=== PATIENT | female | born 1980 | race Caucasian/White ===

== ENCOUNTER 2023-01-23 11:56 | Outpatient (CLI) | payer OTHER, SELFPAY | END 2023-01-23 11:57 | disposition home or self-care (01) | LOC: NFLDREF 01-26 07:31 | PROVIDERS: PCP Physician Assistant Medical; Referring Provider Physician Assistant Medical; Visit Provider Nurse Practitioner Family | DX: R50.9 Fever, unspecified (principal); D72.829 Elevated white blood cell count, unspecified; R10.11 Right upper quadrant pain | CPT/HCPCS: 87086 ==

== ENCOUNTER 2023-01-23 13:36 | Inpatient (IN) | payer OTHER, SELFPAY ==
[2023-01-23] VITALS (24 sets, daily range): BP systolic 102–123; BP diastolic 56–77; PULSE 70–143; RESP 16–26; TEMP 36.7–39.6; O2SAT 88–99; BMI 38.0; BMI 38.3
[2023-01-23] MEDS: ACETAMINOPHEN 500 MG TABLET 1000 MG PO (14:03)
--- NOTE | 2023-01-23 14:17 | ED_ITS ---
HPI - General Adult General Date Seen: 01/23/23 Chief complaint: Abdominal Pain Stated complaint: Abdominal pain, fever Time Seen by Provider: 01/23/23 13:54 Source: patient, RN notes reviewed and old records reviewed Mode of arrival: ambulatory Limitations: no limitations History of Present Illness HPI narrative: Patient is a 42-year-old woman sent here from urgent care for further evaluation of fever. She initially developed fever and headache on , 5 days ago. She was seen at the urgency room and diagnosed with possible sinus infection and started on Augmentin on I believe Monday. She has had several doses of that but has continued to spike fevers. She says on Monday she started to develop some pain in her right upper abdomen which has persisted and has gotten sharper. She has not had any nausea or vomiting. She denies any cough or shortness of breath. She has not specifically had chest pain. She has had several negative COVID test. No urinary symptoms. No previous abdominal surgeries, does have a remote diagnosis of lupus but it was diet controlled and she has been asymptomatic for a number of years. She does not take any immune modulators or steroids. Related Data Home Medications Medication Instructions Recorded Confirmed desvenlafaxine succinate 100 mg 100 mg PO DAILY 04/15/22 01/23/23 tablet,extended release 24 hr (Pristiq) trazodone 100 mg tablet 100 mg PO HS PRN 04/15/22 01/23/23 clonidine HCl 0.1 mg tablet 0.1 mg PO HS 05/11/22 01/23/23 Previous Rx's Medication Instructions Recorded amoxicillin 875 mg-potassium 1 tab PO BID #14 tabs 11/07/22 clavulanate 125 mg tablet Allergies Allergy/AdvReac Type Severity Reaction Status Date / Time lactose AdvReac Mild milk Verified 01/23/23 13:43 sensitivity gluten AdvReac Mild GI Uncoded 01/23/23 12:09 sensitivities Review of Systems Status of ROS: Reports: 10 or more systems reviewed and unremarkable except as noted in History and below [facility] Medical History Allergic rhinitis ?J30.9 - Allergic rhinitis, unspecified (ICD-10) Otitis media ?H66.90 - Otitis media, unspecified, unspecified ear (ICD-10) Social History Smoking Status: Never smoker Do you use any of these nicotine containing products: None Second hand tobacco smoke exposure: No How often do you have a drink containing alcohol: monthly or less How many standard drinks containing alcohol do you have on a typical day: 1 or 2 How often do you have six or more drinks on one occasion: Never AUDIT-C Alcohol total score: 1 Non-prescribed substance use: denies use service: No Exam Narrative: Exam Narrative: Vital signs as noted above. In general, an alert, nontoxic woman. She appears somewhat flushed. Head: Normocephalic, atraumatic. Eyes: Pupils are equal reactive. Extraocular movements are full. Conjunctivae are normal. ENT: Mucous membranes are moist. Throat is normal. Neck: Supple without lymphadenopathy. Heart: Mildly tachycardic, regular. Soft systolic murmur heard at the left and right sternal border. Lungs: Clear bilaterally. No increased work of breathing, crackles or wheezes. No CVA tenderness. Abdomen: Soft and nondistended. Mild upper and right upper quadrant tenderness without rebound guarding or rigidity. Extremities: Well perfused. No edema. No calf tenderness. Pulses intact. Neurologic: Patient is alert and oriented to person and place. Speech is fluent. Face is symmetric. Moves all extremities equally. Affect: Anxious Skin: Warm and dry. Well perfused. Const: Vital Signs, click to edit/add: Vital Signs - 24 hr 01/23/23 13:44 01/23/23 14:03 01/23/23 14:56 Temperature 103.2 F H 103.2 F H 101.3 F H Pulse Rate Pulse Rate [Pulse Oximeter] 104 H Respiratory Rate 16 Blood Pressure Blood Pressure [Le ft Upper Arm] Blood Pressure [Ri ght Upper Arm] 102/61 Pulse Oximetry 94 Oxygen Delivery Me thod Room Air 01/23/23 16:08 01/23/23 16:13 01/23/23 16:15 Temperature 98.7 F Pulse Rate 74 70 Pulse Rate [Pulse Oximeter] 75 Respiratory Rate 20 Blood Pressure Blood Pressure [Le ft Upper Arm] 104/56 L Blood Pressure [Ri ght Upper Arm] Pulse Oximetry 93 93 94 Oxygen Delivery Me thod Room Air 01/23/23 16:46 01/23/23 17:00 01/23/23 17:21 Temperature Pulse Rate 82 82 143 H Pulse Rate [Pulse Oximeter] Respiratory Rate Blood Pressure Blood Pressure [Le ft Upper Arm] Blood Pressure [Ri ght Upper Arm] Pulse Oximetry 94 95 88 Oxygen Delivery Me thod 01/23/23 17:23 01/23/23 17:30 01/23/23 17:45 Temperature Pulse Rate 77 90 85 Pulse Rate [Pulse Oximeter] Respiratory Rate Blood Pressure 106/60 Blood Pressure [Le ft Upper Arm] Blood Pressure [Ri ght Upper Arm] Pulse Oximetry 93 92 90 Oxygen Delivery Me thod 01/23/23 18:00 01/23/23 18:15 01/23/23 18:30 Temperature Pulse Rate 91 88 78 Pulse Rate [Pulse Oximeter] Respiratory Rate Blood Pressure Blood Pressure [Le ft Upper Arm] Blood Pressure [Ri ght Upper Arm] Pulse Oximetry 91 95 97 Oxygen Delivery Me thod 01/23/23 19:09 Temperature 100.4 F H Pulse Rate Pulse Rate [Pulse Oximeter] Respiratory Rate 18 Blood Pressure Blood Pressure [Le ft Upper Arm] Blood Pressure [Ri ght Upper Arm] Pulse Oximetry Oxygen Delivery Me thod Documenting provider has reviewed patient's vital signs: yes Course Course Hospital Course: I did look with the bedside ultrasound, I do not see obvious gallstones or significant wall thickening. She does not have a sonographic Will's. She does seem to have a mildly dilated IVC and intra portal vasculature is prominent. IV is established, I am going to get some baseline labs before deciding on imaging. Blood cultures as well as urine culture obtained. She had a CBC done in urgent care which showed a white blood cell count of 15. The urinalysis was negative. I gave a dose of Zosyn after cultures were obtained as well as a L of normal saline. Labs showed mild respiratory acidosis, she was tachypneic when I 1st saw her. Her bicarb is normal. Metabolic panel showed mildly low sodium 131 and a potassium of 3.2. Otherwise unremarkable. Her liver function showed mildly elevated AST of 48 and an ALT of 108, alk-phos was 176. Lactate was normal at 1.4. I did elect to do a right upper quadrant ultrasound given mild elevations in her liver function tests. This was ultimately read as showing no evidence of cholecystitis, no gallstones, mild hepatomegaly. Her CRP returned at 69. Lipase was normal, TSH was normal. Point of care troponin was 0.02. I elected to do a CT scan of the chest abdomen and pelvis at this point looking for a source for her fever. By my review, she had significant infiltrates in both lungs suggestive of bilateral pneumonia. I did not see any acute findings in the abdomen. Final radiology read is as follows:IMPRESSION: 1. Negative for acute pulmonary embolism. 2. Large consolidative opacities in both lungs compatible with multifocal pneumonia. Tiny bilateral pleural effusions. 3. Mediastinal and bilateral hilar lymphadenopathy is likely reactive. 4. Fluid in the proximal colon which can be seen with diarrhea. 5. Hepatomegaly. I added a dose of azithromycin for atypical coverage. She has been hemodynamically stable and without further complaints here. I have recommended admission to the hospital for IV antibiotics and have talked to the hospitalist. Vital Signs Vital signs: Initial Vital Signs Temperature 103.2 F H 01/23/23 13:44 Temperature Source Oral 01/23/23 13:44 Pulse Rate 104 H 01/23/23 13:44 Pulse Rhythm Regular 01/23/23 13:44 Pulse Strength 3+ Normal 01/23/23 13:44 Respiratory Rate 16 01/23/23 13:44 Blood Pressure 102/61 01/23/23 13:44 Blood Pressure Mean 74 01/23/23 13:44 Blood Pressure Position Sitting 01/23/23 13:44 Pulse Oximetry 94 01/23/23 13:44 Oxygen Delivery Method Room Air 01/23/23 13:44 Vital Signs Temperature 103.2 F H 01/23/23 13:44 Pulse Rate 104 H 01/23/23 13:44 Respiratory Rate 16 01/23/23 13:44 Blood Pressure 102/61 01/23/23 13:44 Pulse Oximetry 94 01/23/23 13:44 Oxygen Delivery Method Room Air 01/23/23 13:44 Temperature 100.4 F H 01/23/23 19:09 Pulse Rate 78 01/23/23 18:30 Respiratory Rate 18 01/23/23 19:09 Blood Pressure 106/60 01/23/23 17:23 Pulse Oximetry 97 01/23/23 18:30 Oxygen Delivery Method Room Air 01/23/23 16:08 Medical Decision Making Lab Data Labs: Lab Results 01/23/23 Range/Units 14:20 VBG pH 7.464 H (7.32-7.43) VBG pCO2 39 L (40-50) mmHG VBG pO2 28.8 (25-47) mmHG VBG HCO3 28 (21-28) mmol/L Sodium 131 L (135-149) mmol/L Potassium 3.2 L (3.6-5.1) mmol/L Chloride 96 (96-114) mmol/L Carbon Dioxide 30 (20-32) mmol/L BUN 7 (5-24) mg/dL Creatinine 0.8 (0.5-1.5) mg/dL Estimated Creat Clear 90.53 Estimated GFR 93 ml/min Glucose 114 (60-115) mg/dL Calcium 8.0 L (8.4-10.6) mg/dL Total Bilirubin 0.6 (0.1-1.5) mg/dL Direct Bilirubin 0.3 (0.0-0.5) mg/dL AST 48 H (12-35) U/L ALT 108 H (4-35) U/L Alkaline Phosphatase 176 H (40-150) U/L Lactate Baseline 1.4 (0.5-1.9) mmol/L C-Reactive Protein 68.9 H (0.5-1.0) mg/dL Total Protein 6.7 (6.0-8.3) g/dL Albumin 3.5 (3.3-5.0) g/dL Lipase 21 L (23-300) U/L TSH 3.190 (0.270-4.200) uIU/mL POC Troponin I 0.02 (0.01-0.04) ng/ml Discharge Plan Discharge Clinical Impression: Multifocal pneumonia Patient Disposition: Admitted As Observation
[2023-01-23 14:31] LABS: HCO3 VBG 28 mmol/L (21-28); Lactate Sepsis w/Reflex* 1.4 mmol/L (0.5-1.9); PCO2 VBG 39 mmHG (40-50); PO2 VBG 28.8 mmHG (25-47); pH VBG 7.464 (7.32-7.43)
[2023-01-23] MEDS: 0.9 % SODIUM CHLORIDE 1000 ml 1,000 ML IV (14:34)
[2023-01-23] MEDS: PIPERACILLIN/TAZOBACTAM 3.375 GM in 0.9 % SODIUM CHLORIDE Mini-bag 100 ML IVPB (14:49)
[2023-01-23 14:56] LABS: Albumin* 3.5 g/dL (3.3-5.0)
[2023-01-23 14:59] LABS: Aspartate Amino Transferase* 48 U/L (12-35); Bilirubin Direct* 0.3 mg/dL (0.0-0.5); Bilirubin Total* 0.6 mg/dL (0.1-1.5)
[2023-01-23 15:00] LABS: Alanine Aminotransferase* 108 U/L (4-35); Alkaline Phosphatase* 176 U/L (40-150); Lipase* 21 U/L (23-300)
[2023-01-23 15:01] LABS: Chloride* 96 mmol/L (96-114); Potassium* 3.2 mmol/L (3.6-5.1); Sodium* 131 mmol/L (135-149)
--- NOTE | 2023-01-23 15:03 | CRLHL7_ITS ---
For Patients: As a result of the Cures Act, medical imaging exams and procedure reports are released immediately into your electronic medical record. You may view this report before your referring provider. If you have questions, please contact your health care provider. INDICATION: Fever and abdominal pain. COMPARISON: COMPARISON DATE TECHNIQUE: Ultrasound examination of the right upper quadrant was performed. FINDINGS: The gallbladder is normal in appearance with no sign of cholelithiasis or acute cholecystitis. A sonographic Will sign is not present, with no pain over the gallbladder during ultrasound examination. The common bile duct is normal in caliber at 2 mm. The pancreatic head and body were examined, and these are normal in appearance. The abdominal aorta and visualized portions of the inferior vena cava are normal in appearance. The liver shows no sign of mass or contour abnormality, and there is no sign of ascites. There is antegrade flow in the main portal vein. The liver is mildly enlarged, measuring 21.4 centimeters in length. The right kidney is unremarkable. IMPRESSION: Mild hepatomegaly. Otherwise normal right upper quadrant ultrasound. Dictated by Arvind Choe MD @ 01/23/2023 5:45:52 PM (Electronically Signed)
[2023-01-23 15:04] LABS: Blood Urea Nitrogen* 7 mg/dL (5-24); Carbon Dioxide* 30 mmol/L (20-32); Creatinine* 0.8 mg/dL (0.5-1.5); Est. Creatinine Clearance* 90.53; Estimated Glomerular Filt Rate 93 ml/min; Glucose* 114 mg/dL (60-115); Troponin, Point-of-Care* 0.02 ng/ml (0.01-0.04)
[2023-01-23 15:17] LABS: Total Protein* 6.7 g/dL (6.0-8.3)
--- NOTE | 2023-01-23 16:13 | CRLHL7_ITS ---
For Patients: As a result of the Century Cures Act, medical imaging exams and procedure reports are released immediately into your electronic medical record. You may view this report before your referring provider. If you have questions, please contact your health care provider. INDICATION: Fever, chills, abdominal pain, mid upper back pain since Monday. TECHNIQUE: CT of the chest, abdomen, and pelvis with 95 cc Isovue 370 IV contrast. Coronal and sagittal reconstructions. COMPARISON: Abdominal ultrasound 01/23/2023. FINDINGS: Chest: Normal heart size. Normal caliber thoracic aorta and central pulmonary arteries. No acute pulmonary embolism identified. No pericardial effusion. Enlarged mediastinal and bilateral hilar lymph nodes are likely reactive. The thyroid gland is normal in appearance. Tiny bilateral pleural effusions. There are multiple large consolidative opacities in both lungs compatible with multifocal pneumonia. No pneumothorax. No pulmonary nodules identified. No central endobronchial lesion or significant bronchial wall thickening. Schmorl`s node in the superior endplate of the T11 vertebral body. The bones are otherwise unremarkable. Abdomen/pelvis: The liver is enlarged measuring 22.5 cm in length. No focal liver lesions. The gallbladder, spleen, pancreas, and adrenal glands are negative. No biliary dilation. Hepatic and portal veins appear patent. Symmetric enhancement of the kidneys. No hydronephrosis or ureteral dilation. No obstructing urinary calculi identified. The bladder is normal in appearance. Multiple exophytic uterine fibroids. IUD in the uterus. No definite adnexal mass. Mild wall thickening of the gastric antrum is likely inflammatory. No small bowel dilation. Fluid-filled ascending and transverse colon which can be seen with diarrhea. Formed stool in the rectosigmoid colon. Redundant sigmoid colon. Negative appendix. Small amount of free fluid in the pelvis is likely physiologic. No intraperitoneal free air. No lymphadenopathy. Small fat containing umbilical hernia. The bones are unremarkable. IMPRESSION: 1. Negative for acute pulmonary embolism. 2. Large consolidative opacities in both lungs compatible with multifocal pneumonia. Tiny bilateral pleural effusions. 3. Mediastinal and bilateral hilar lymphadenopathy is likely reactive. 4. Fluid in the proximal colon which can be seen with diarrhea. 5. Hepatomegaly. Please note that all CT scans at this facility use dose modulation, iterative reconstruction, and/or weight-based dosing when appropriate to reduce radiation dose to as low as reasonably achievable. Dictated by Jayashree Mccoy MD @ 01/23/2023 6:32:19 PM (Electronically Signed)
--- NOTE | 2023-01-23 16:14 | ED.NURSE ---
was noted to have an irregular pulse. did place director of cardiac cath lab which proved to have sinus rhythm with frequent pacs.
[2023-01-23 18:00] LABS: C Reactive Protein* 68.9 mg/dL (0.5-1.0)
[2023-01-23] MEDS: AZITHROMYCIN 250 MG TABLET 500 MG PO (18:47)
--- NOTE | 2023-01-23 19:20 | ED.NURSE ---
pt report given to oncoming medsur nurse.
[2023-01-23 21:45] LABS: Lactate Dehydrogenase* 392 U/L (120-246)
[2023-01-23] MEDS: ACETAMINOPHEN 325 MG TABLET 650 MG PO (21:47)
[2023-01-23] MEDS: cefTRIAXone 1 GM in 0.9 % SODIUM CHLORIDE Mini-bag 100 ML IVPB (21:49)
[2023-01-23] MEDS: MELATONIN 3 MG TABLET PO (22:11)
[2023-01-23] MEDS: TRAZODONE HCL 50 MG TABLET 100 MG PO (22:11)
[2023-01-24] VITALS (8 sets, daily range): BP systolic 97–107; BP diastolic 62–67; PULSE 74–95; RESP 18–20; TEMP 36.6–38.2; O2SAT 92–96
--- NOTE | 2023-01-24 00:35 | PM.IMHP1 ---
Hospitalist- H&P: HPI History of Present Illness Time Seen by Provider: 19:30 Date Seen: 01/23/23 Chief complaint: Abdominal pain, fever Narrative: Holly Abdi is a 42 year old woman was in her usual state of health until about 5 days ago. Since then she has had intermittent fevers and headache. Denies cough or dyspnea. Assessed in the urgent care setting in [place], [place], and was thought to have an acute sinusitis for which she was started on Augmentin 875 b.i.d.. Has taken 2 and half days of this medicine, total of 5 doses. Continues to spike fevers. Abdominal pain not improving. Has not had chest pain. Denies dysuria, urgency, frequency, hematuria. No diarrhea. Review of Systems Status of ROS: Reports: 10 or more systems reviewed and unremarkable except as noted in History and below Narrative: Interact with friends and family. As best as she can tell she has not been exposed to others who have been ill. Has no birds in her home. Did visit her father who has pigeons in his barn. This was about 2 weeks ago. 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 . No children. 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 Designates her father, Dmitriy Boyce, cell phone [phone], and her mother, Lluvia Boyce, cell phone [phone], as her de luna of consumer attorney for health should that be required. Requests full resuscitation in the event of cardiopulmonary demise. Currently does not have a primary care physician. Smoking Status: Never smoker Do you use any of these nicotine containing products: None Second hand tobacco smoke exposure: No How often do you have a drink containing alcohol: monthly or less How many standard drinks containing alcohol do you have on a typical day: 1 or 2 How often do you have six or more drinks on one occasion: Never AUDIT-C Alcohol total score: 1 Non-prescribed substance use: denies use service: No Meds Home Medications and Allergies Home Medications Medication Instructions Recorded Confirmed Type desvenlafaxine succinate 100 mg 100 mg PO DAILY 04/15/22 01/23/23 History tablet,extended release 24 hr (Pristiq) trazodone 100 mg tablet 100 mg PO HS PRN 04/15/22 01/23/23 History clonidine HCl 0.1 mg tablet 0.1 mg PO HS 05/11/22 01/23/23 History Home Medication Comments: Started Augmentin 875/125 1 tab twice daily 2 and half days ago. Has taken a total of 5 doses without improvement. Allergies Allergy/AdvReac Type Severity Reaction Status Date / Time lactose AdvReac Mild milk Verified 01/23/23 13:43 sensitivity gluten AdvReac Mild GI Uncoded 01/23/23 12:09 sensitivities Exam Narrative: Exam Narrative: I examined the patient in the emergency department as she is in a semi recumbent position. Appears weary. No acute distress. Intermittent dry cough. Vision and hearing are grossly normal. Alert, oriented to self, place, time, situation. Articulate, cooperative, friendly. Mood and affect are congruent. Tympanic membranes appear normal. Midline nasal septum. Dentition in fair repair. Mallampati class 2 airway. No icterus or conjunctival injection. Pupils equally round reactive to light and accommodation. Extraocular muscles are intact. Neck is supple. Midline trachea. No JVD or hepatojugular reflux. No carotid bruits. No head and neck lymphadenopathy. Lungs with bibasilar rales, left greater than right. No wheezing or rhonchi. Chest wall excursions are full. Heart tones with regular rhythm, normal S1-S2, without murmur, gallop, or rub. Abdomen with active bowel sounds, soft, nontender. No organomegaly masses. Extremities without edema. Capillary refill less than 3 seconds. No focal motor neurologic deficits. Independent transfer, station, gait. No tremor, asterixis, or ataxia. Skin is dry and intact. No jaundice, petechiae, cyanosis, or rashes. Const: Vital Signs, click to edit/add: Vital Signs - 24 hr 01/23/23 13:44 01/23/23 14:03 01/23/23 14:56 Temperature 103.2 F H 103.2 F H 101.3 F H Pulse Rate Pulse Rate [Pulse Oximeter] 104 H Pulse Rate [Right Radial] Respiratory Rate 16 Blood Pressure Blood Pressure [Le ft Upper Arm] Blood Pressure [Ri ght Arm] Blood Pressure [Ri ght Upper Arm] 102/61 Pulse Oximetry 94 Oxygen Delivery Mn thod Room Air 01/23/23 16:08 01/23/23 16:13 01/23/23 16:15 Temperature 98.7 F Pulse Rate 74 70 Pulse Rate [Pulse Oximeter] 75 Pulse Rate [Right Radial] Respiratory Rate 20 Blood Pressure Blood Pressure [Le ft Upper Arm] 104/56 L Blood Pressure [Ri ght Arm] Blood Pressure [Ri ght Upper Arm] Pulse Oximetry 93 93 94 Oxygen Delivery Mn thod Room Air 01/23/23 16:46 01/23/23 17:00 01/23/23 17:21 Temperature Pulse Rate 82 82 143 H Pulse Rate [Pulse Oximeter] Pulse Rate [Right Radial] Respiratory Rate Blood Pressure Blood Pressure [Le ft Upper Arm] Blood Pressure [Ri ght Arm] Blood Pressure [Ri ght Upper Arm] Pulse Oximetry 94 95 88 Oxygen Delivery Mn thod 01/23/23 17:23 01/23/23 17:30 01/23/23 17:45 Temperature Pulse Rate 77 90 85 Pulse Rate [Pulse Oximeter] Pulse Rate [Right Radial] Respiratory Rate Blood Pressure 106/60 Blood Pressure [Le ft Upper Arm] Blood Pressure [Ri ght Arm] Blood Pressure [Ri ght Upper Arm] Pulse Oximetry 93 92 90 Oxygen Delivery Mn thod 01/23/23 18:00 01/23/23 18:15 01/23/23 18:30 Temperature Pulse Rate 91 88 78 Pulse Rate [Pulse Oximeter] Pulse Rate [Right Radial] Respiratory Rate Blood Pressure Blood Pressure [Le ft Upper Arm] Blood Pressure [Ri ght Arm] Blood Pressure [Ri ght Upper Arm] Pulse Oximetry 91 95 97 Oxygen Delivery Mn thod 01/23/23 19:08 01/23/23 19:09 01/23/23 19:15 Temperature 100.4 F H Pulse Rate 92 Pulse Rate [Pulse Oximeter] Pulse Rate [Right Radial] Respiratory Rate 18 Blood Pressure Blood Pressure [Le ft Upper Arm] Blood Pressure [Ri ght Arm] Blood Pressure [Ri ght Upper Arm] Pulse Oximetry 93 96 Oxygen Delivery Me thod 01/23/23 19:30 01/23/23 19:45 01/23/23 20:44 Temperature 101.1 F H Pulse Rate 93 98 Pulse Rate [Pulse Oximeter] Pulse Rate [Right Radial] 96 Respiratory Rate 20 Blood Pressure Blood Pressure [Le ft Upper Arm] Blood Pressure [Ri ght Arm] 123/77 Blood Pressure [Ri ght Upper Arm] Pulse Oximetry 99 96 Oxygen Delivery Me thod Room Air 01/23/23 20:44 01/23/23 21:47 Temperature 102.9 F H Pulse Rate Pulse Rate [Pulse Oximeter] Pulse Rate [Right Radial] Respiratory Rate 20 Blood Pressure Blood Pressure [Le ft Upper Arm] Blood Pressure [Ri ght Arm] Blood Pressure [Ri ght Upper Arm] Pulse Oximetry [facility] Hospitalist - H&P: Result Labs Labs: [facility] 01/23/23 14:20 Sodium 131 L Potassium 3.2 L Chloride 96 Carbon Dioxide 30 BUN 7 Creatinine 0.8 Glucose 114 Calcium 8.0 L Liver Function 01/23/23 Range/Units 14:20 Total Bilirubin 0.6 (0.1-1.5) mg/dL Direct Bilirubin 0.3 (0.0-0.5) mg/dL AST 48 H (12-35) U/L ALT 108 H (4-35) U/L Alkaline Phosphatase 176 H (40-150) U/L Albumin 3.5 (3.3-5.0) g/dL Imaging CT scan - chest, abdomen, pelvis: Attestation: I have reviewed the pertinent imaging results. Radiologist's impression: IMPRESSION: 1. Negative for acute pulmonary embolism. 2. Large consolidative opacities in both lungs compatible with multifocal pneumonia. Tiny bilateral pleural effusions. 3. Mediastinal and bilateral hilar lymphadenopathy is likely reactive. 4. Fluid in the proximal colon which can be seen with diarrhea. 5. Hepatomegaly. Assessment and Plan Assessment and plan (1) Atypical pneumonia: Problem comment: Relative unresponsiveness to Augmentin oral antibiotic and abnormal laboratories suggest high likelihood for mycoplasma pneumoniae. Differential diagnosis includes Legionella, Chlamydia pneumoniae. Doubt psittacosis. Status: Acute (2) Multifocal pneumonia: Problem comment: Unresponsive to outpatient oral Augmentin x2 and half days. 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 Still sees web content manager annually. Advised to avoid exposure to all nonsteroidal anti-inflammatory medications. Status: Acute (4) Hyponatremia: Problem comment: Likely related to water intake in efforts to maintain her hydration. Status: Acute (5) Hypokalemia: Status: Acute Plan 1. Reviewed with patient. 2. Answered her questions. 3. Continues to have spiking fevers despite oral Augmentin. It appears as though she has an atypical pneumonia. Will broaden the spectrum of antibiotic coverage, start her on ceftriaxone and azithromycin. 4. Continue to monitor oxygen needs closely. Will ask respiratory therapy to assist. Bedside incentive spirometry. 5. Normal saline IV. 6. Oral potassium supplementation. 7. Monitor labs, including CBC, liver function studies, renal function, electrolytes. 8. Continue with her supportive medications. 9. Patient agreeable to above stated plans and recommendations.
--- NOTE | 2023-01-24 01:59 | PC.NURSE ---
Pt arrived from ED. Pleasant and cooperative. Fever increasing since last taken in ED. Tylenol given for a temp of 102.9. LS with exp. wheezes noted to Right lung posteriorly. Pt denies any chest pain, SOB. Minimal coughing noted. Rocephine given.
[2023-01-24] MEDS: ACETAMINOPHEN 325 MG TABLET 650 MG PO ×3 (06:44→20:02)
[2023-01-24] MEDS: POTASSIUM BICARB 25 MEQ EFFERVESCENT TAB 50 MEQ PO (06:48)
[2023-01-24 06:54] LABS: HCO3 VBG 27 mmol/L (21-28); PCO2 VBG 41 mmHG (40-50); PO2 VBG 30.3 mmHG (25-47); pH VBG 7.438 (7.32-7.43)
[2023-01-24 07:03] LABS: Basophils Percent Auto 0.3 % (0.0-3.0); Hematocrit 33.8 % (33.0-51.0); Hemoglobin* 11.4 gm/dL (12.0-16.0); Immature Granulocytes Pct Auto 0.6 %; Immature Reticulocyte Fraction 6.5 % (3.0-15.9); Lymphocytes Percent Auto 11.3 % (20-44); Mean Corpuscular HGB Conc 34 gm/dL (32-36); Mean Corpuscular Hemoglobin 31 pg (26-34); Mean Corpuscular Volume 90 fL (80-100); Monocytes Percent Auto 4.8 % (0.0-11.0); Platelet Count* 287 K/uL (140-440); RDW Coefficient of Variation % 13.8 % (11.5-15.5); Red Blood Count 3.74 m/uL (4.00-5.20); Reticulocyte Hemoglobin Equivi 19.8 pg (29.0-35.0); Reticulocyte Percent 0.4 % (0.5-2.0); Reticulocytes Absolute 0.01 # (0.03-0.08); White Blood Count* 12.31 K/uL (4.50-11.00)
[2023-01-24 07:25] LABS: Slide Review Reflex No
[2023-01-24 07:27] LABS: Albumin* 2.9 g/dL (3.3-5.0); Chloride* 98 mmol/L (96-114); Sodium* 132 mmol/L (135-149)
[2023-01-24 07:28] LABS: Potassium* 3.3 mmol/L (3.6-5.1)
[2023-01-24 07:29] LABS: Creatinine* 0.9 mg/dL (0.5-1.5); Est. Creatinine Clearance* 80.47; Estimated Glomerular Filt Rate 81 ml/min
[2023-01-24 07:30] LABS: Alanine Aminotransferase* 78 U/L (4-35); Alkaline Phosphatase* 149 U/L (40-150); Aspartate Amino Transferase* 39 U/L (12-35); Bilirubin Total* 0.4 mg/dL (0.1-1.5); Blood Urea Nitrogen* 12 mg/dL (5-24); Carbon Dioxide* 28 mmol/L (20-32); Glucose* 130 mg/dL (60-115); Total Protein* 5.8 g/dL (6.0-8.3)
[2023-01-24 07:31] LABS: Calcium* 7.4 mg/dL (8.4-10.6); Magnesium* 1.8 mg/dL (1.5-2.6); Phosphorus* 2.4 mg/dL (2.5-4.5)
--- NOTE | 2023-01-24 07:34 | PC.NURSE ---
END OF SHIFT NOTE: PT PLEASANT AND COOPERATIVE WITH CARES. PT DENIES CP, SOB, N/V. AMBULATES INDEPENDENTLY WITHIN ROOM. VSS ON RA; TEMP 99.0-100.4F. CALL LIGHT WITHIN PT?S REACH.?PT DIAPHORETIC AT TIMES. CHANGED GOWN AND ICE PACK FOR COMFORT. UNEVENTFUL NIGHT.
[2023-01-24 07:42] LABS: Procalcitonin* 1.61 ng/mL (<0.50)
[2023-01-24 08:03] LABS: C Reactive Protein* 32.5 mg/dL (0.5-1.0)
--- NOTE | 2023-01-24 09:12 | NUTR.NU ---
RDN with MD consult for lactose and gluten free diet. Patient's appetite is good and was eating breakfast during visit this morning. Patient has been following a lactose and gluten free diet for ~6 years due to her Lupus diagnosis. Patient had no questions or concerns regarding her diet and has been ordering foods she can have off the menu without difficulty. RDN's contact information was provided and patient was encouraged to contact RDN with questions. RDN will continue to follow PRN.
[2023-01-24] MEDS: AZITHROMYCIN 250 MG TABLET PO (09:16)
[2023-01-24] MEDS: POTASSIUM BICARB 25 MEQ EFFERVESCENT TAB PO ×3 (09:16→13:00)
[2023-01-24] MEDS: DESVENLAFAXINE SUCCINATE ER 50 MG TAB 100 MG PO (09:24)
[2023-01-24] MEDS: SODIUM CHLORIDE 0.9 % (FLUSH) 10 ML SYRINGE 5 ML IVF ×3 (09:25→21:26)
--- NOTE | 2023-01-24 09:47 | PM.IMPN1 ---
Progress Note: A&P Assessment and plan (1) Atypical pneumonia: Problem details: - no significant improvement on Augmentin as an outpatient oral antibiotic, likely mycoplasma pneumoniae - ddx includes Legionella, Chlamydia pneumoniae, doubt psittacosis - continue Ceftriaxone and Azithromycin (01/23) Status: Acute (2) Multifocal pneumonia: Problem details: - on ED imaging, primary symptom is fever - TTE 01/24 ordered Status: Acute (3) Protein-losing nephropathy: Problem details: - history of lupus nephropathy, resolved 12 years ago, off of immunosuppressant therapy since 2009 - Dr. Hernandez is Elevator Adjuster [phone] Status: Acute (4) Hyponatremia: Problem details: - mild, likely related to increased free water intake in efforts to maintain her hydration Status: Acute (5) Hypokalemia: Problem details: - mild, replace and follow Status: Acute (6) Murmur, cardiac: Problem details: - L midaxillary line - given this finding + pneumonia, will obtain TTE 01/24/23 Status: Acute Plan - continue antibiotics - SCDs for ppx - reviewed plan of care with patient's Elevator Adjuster (Dr. Hernandez at [phone]) Subjective Date Seen: 01/24/23 Interval history: Holly feels better today. Tolerating IV antibiotics. Specifically denies joint pain, skin changes, dyspnea, or chest pain. Exam Narrative: Exam Narrative: GEN: Alert and oriented, nontoxic in appearance HEENT: EOMIs bilaterally, no scleral icterus. No adenopathy in cervical or supraclavicular regions CV: Heart rate regular, soft murmur with mid systolic click noted left mid axillary line R: Bibasilar decrease in air movement with mild rhonchi, no rales, no wheezing Ext: wwp, no concerning edema, no joint effusions Skin: No concerning skin lesions or rashes on exposed skin Neuro: No focal deficits Psych: Appropriate Const: Vital Signs, click to edit/add: Vital Signs - 24 hr 01/23/23 13:44 01/23/23 14:03 01/23/23 14:56 Temperature 103.2 F H 103.2 F H 101.3 F H Pulse Rate Pulse Rate [Pulse Oximeter] 104 H Pulse Rate [Right Radial] Respiratory Rate 16 Blood Pressure Blood Pressure [Le ft Upper Arm] Blood Pressure [Ri ght Arm] Blood Pressure [Ri ght Upper Arm] 102/61 Pulse Oximetry 94 Oxygen Delivery Me thod Room Air 01/23/23 16:08 01/23/23 16:13 01/23/23 16:15 Temperature 98.7 F Pulse Rate 74 70 Pulse Rate [Pulse Oximeter] 75 Pulse Rate [Right Radial] Respiratory Rate 20 Blood Pressure Blood Pressure [Le ft Upper Arm] 104/56 L Blood Pressure [Ri ght Arm] Blood Pressure [Ri ght Upper Arm] Pulse Oximetry 93 93 94 Oxygen Delivery Me od Room Air 01/23/23 16:46 01/23/23 17:00 01/23/23 17:21 Temperature Pulse Rate 82 82 143 H Pulse Rate [Pulse Oximeter] Pulse Rate [Right Radial] Respiratory Rate Blood Pressure Blood Pressure [Le ft Upper Arm] Blood Pressure [Ri ght Arm] Blood Pressure [Ri ght Upper Arm] Pulse Oximetry 94 95 88 Oxygen Delivery Me od 01/23/23 17:23 01/23/23 17:30 01/23/23 17:45 Temperature Pulse Rate 77 90 85 Pulse Rate [Pulse Oximeter] Pulse Rate [Right Radial] Respiratory Rate Blood Pressure 106/60 Blood Pressure [Le ft Upper Arm] Blood Pressure [Ri ght Arm] Blood Pressure [Ri ght Upper Arm] Pulse Oximetry 93 92 90 Oxygen Delivery Me od 01/23/23 18:00 01/23/23 18:15 01/23/23 18:30 Temperature Pulse Rate 91 88 78 Pulse Rate [Pulse Oximeter] Pulse Rate [Right Radial] Respiratory Rate Blood Pressure Blood Pressure [Le ft Upper Arm] Blood Pressure [Ri ght Arm] Blood Pressure [Ri ght Upper Arm] Pulse Oximetry 91 95 97 Oxygen Delivery Me od 01/23/23 19:08 01/23/23 19:09 01/23/23 19:15 Temperature 100.4 F H Pulse Rate 92 Pulse Rate [Pulse Oximeter] Pulse Rate [Right Radial] Respiratory Rate 18 Blood Pressure Blood Pressure [Le ft Upper Arm] Blood Pressure [Ri ght Arm] Blood Pressure [Ri ght Upper Arm] Pulse Oximetry 93 96 Oxygen Delivery Me thod 01/23/23 19:30 01/23/23 19:45 01/23/23 20:44 Temperature 101.1 F H Pulse Rate 93 98 Pulse Rate [Pulse Oximeter] Pulse Rate [Right Radial] 96 Respiratory Rate 20 Blood Pressure Blood Pressure [Le ft Upper Arm] Blood Pressure [Ri ght Arm] 123/77 Blood Pressure [Ri ght Upper Arm] Pulse Oximetry 99 [facility] 01/23/23 20:44 01/23/23 21:47 01/23/23 23:00 Temperature 102.9 F H 98.1 F Pulse Rate Pulse Rate [Pulse Oximeter] Pulse Rate [Right Radial] Respiratory Rate 20 Blood Pressure Blood Pressure [Le ft Upper Arm] Blood Pressure [Ri ght Arm] Blood Pressure [Ri ght Upper Arm] Pulse Oximetry [facility] 01/23/23 23:55 01/23/23 23:55 01/23/23 23:55 Temperature 99.0 F Pulse Rate Pulse Rate [Pulse Oximeter] 81 81 Pulse Rate [Right Radial] Respiratory Rate 16 26 H 26 H Blood Pressure Blood Pressure [Le ft Upper Arm] Blood Pressure [Ri ght Arm] 105/59 L Blood Pressure [Ri ght Upper Arm] Pulse Oximetry 96 96 [facility] Room Air 01/24/23 06:44 Temperature 100.4 F H Pulse Rate Pulse Rate [Pulse Oximeter] Pulse Rate [Right Radial] Respiratory Rate Blood Pressure Blood Pressure [Le ft Upper Arm] Blood Pressure [Ri ght Arm] Blood Pressure [Ri ght Upper Arm] Pulse Oximetry [facility] Labs: Laboratory Results - last 24 hr 01/23/23 01/23/23 01/24/23 14:20 21:31 06:27 WBC 12.31 H RBC 3.74 L Hgb 11.4 L Hct 33.8 MCV 90 MCH 31 MCHC 34 RDW Coeff of Sky 13.8 Plt Count 287 Neut % (Auto) 83.0 H Lymph % (Auto) 11.3 L [place] % (Auto) 4.8 Eos % (Auto) 0.0 Baso % (Auto) 0.3 Neut # (Auto) 10.20 H Lymph # (Auto) 1.40 [place] # (Auto) 0.60 Eos # (Auto) 0.00 Baso # (Auto) 0.00 Abs Immat Gran (auto) 0.10 Imm/Tot Granulo (auto) 0.6 Absolute Retic 0.01 L Percent Retic 0.4 L Immature Retic Fraction 6.5 Retic Hgb Equivalent 19.8 L VBG pH 7.464 H 7.438 H VBG pCO2 39 L 41 VBG pO2 28.8 30.3 VBG HCO3 28 27 Sodium 131 L 132 L Potassium 3.2 L 3.3 L Chloride 96 98 Carbon Dioxide 30 28 BUN 7 12 Creatinine 0.8 0.9 Estimated Creat Clear 90.53 80.47 Estimated GFR 93 81 Glucose 114 130 H Lactate 1.0 Calcium 8.0 L 7.4 L Phosphorus 2.4 L Magnesium 1.8 Total Bilirubin 0.6 0.4 Direct Bilirubin 0.3 AST 48 H 39 H ALT 108 H 78 H Alkaline Phosphatase 176 H 149 Lactate Baseline 1.4 Lactate Dehydrogenase 392 H C-Reactive Protein 68.9 H 32.5 H Total Protein 6.7 5.8 L Albumin 3.5 2.9 L Lipase 21 L Procalcitonin 1.61 H TSH 3.190 Lab Acknowledgement Test Added POC Troponin I 0.02
[2023-01-24 10:24] LABS: PCR FLU A Negative PCR FLU A (Negative); PCR FLU B Negative PCR FLU B (Negative); PCR RSV Negative PCR RSV (Negative)
[2023-01-24 10:47] LABS: SARS PCR* Negative SARS-CoV-2 (Negative)
--- NOTE | 2023-01-24 18:50 | PC.NURSE ---
Patient is independent in the room. VSS ON RA. Droplet precautions for unknown pneumonia cause. Great PO intake of 800 since 1500. No pain or any fever reported.
[2023-01-24] MEDS: cefTRIAXone 1 GM in 0.9 % SODIUM CHLORIDE Mini-bag 100 ML IVPB (21:26)
[2023-01-25] VITALS (10 sets, daily range): BP systolic 102–116; BP diastolic 62–73; PULSE 71–86; RESP 16–18; TEMP 36.9–37.8; O2SAT 90–94
[2023-01-25] MEDS: MELATONIN 3 MG TABLET PO ×2 (00:13→22:39)
[2023-01-25] MEDS: TRAZODONE HCL 50 MG TABLET 100 MG PO ×2 (00:13→22:39)
--- NOTE | 2023-01-25 06:09 | PC.NURSE ---
End of Shift: Pt pleasant and cooperative throughout shift, reports pain 6/[address] but generalized discomfort due to not feeling well. Febrile with temp highest at 100.7. Improved with tylenol to 98.8. Pt reports chills. Temp checked throughout shift. Pt requested taking 50mg instead of the full 100mg PRN tramadol at HS. Voiding well, independent. No BM.
[2023-01-25] MEDS: ACETAMINOPHEN 325 MG TABLET 650 MG PO (06:28)
[2023-01-25 07:03] LABS: Basophils Absolute Auto 0.04 K/uL (0.00-0.30); Basophils Percent Auto 0.4 % (0.0-3.0); Eosinophils Absolute Auto 0.03 K/uL (0.00-0.50); Eosinophils Percent Auto 0.3 % (0.0-7.0); Hematocrit 35.9 % (33.0-51.0); Hemoglobin* 11.9 gm/dL (12.0-16.0); Immature Granulocytes Abs Auto 0.08 K/uL (0.00-0.30); Immature Granulocytes Pct Auto 0.9 %; Lymphocytes Percent Auto 16.7 % (20-44); Mean Corpuscular HGB Conc 33 gm/dL (32-36); Mean Corpuscular Hemoglobin 30 pg (26-34); Mean Corpuscular Volume 90 fL (80-100); Monocytes Percent Auto 7.4 % (0.0-11.0); Neutrophils Percent Auto 74.3 % (42.0-72.0); Platelet Count* 296 K/uL (140-440); RDW Coefficient of Variation % 14.1 % (11.5-15.5); Red Blood Count 3.97 m/uL (4.00-5.20); White Blood Count* 9.22 K/uL (4.50-11.00)
[2023-01-25 07:15] LABS: Ionized Calcium* 1.04 mmol/L (1.11-1.30)
[2023-01-25 07:20] LABS: Slide Review Reflex No
[2023-01-25 07:32] LABS: Albumin* 3.3 g/dL (3.3-5.0)
[2023-01-25 07:33] LABS: Chloride* 97 mmol/L (96-114); Sodium* 135 mmol/L (135-149)
[2023-01-25 07:35] LABS: Bilirubin Total* 0.6 mg/dL (0.1-1.5); Carbon Dioxide* 32 mmol/L (20-32); Creatinine* 0.7 mg/dL (0.5-1.5); Est. Creatinine Clearance* 103.46; Estimated Glomerular Filt Rate 109 ml/min
[2023-01-25 07:36] LABS: Alanine Aminotransferase* 110 U/L (4-35); Alkaline Phosphatase* 255 U/L (40-150); Aspartate Amino Transferase* 99 U/L (12-35); Blood Urea Nitrogen* 9 mg/dL (5-24); Calcium* 7.9 mg/dL (8.4-10.6); Gamma Glutamyl Transpeptidase* 186 U/L (8-55); Glucose* 113 mg/dL (60-115); Lactate Dehydrogenase* 323 U/L (120-246); Phosphorus* 2.6 mg/dL (2.5-4.5); Total Protein* 6.4 g/dL (6.0-8.3)
[2023-01-25 07:37] LABS: Magnesium* 2.2 mg/dL (1.5-2.6)
[2023-01-25 07:51] LABS: Procalcitonin* 0.93 ng/mL (<0.50)
[2023-01-25] MEDS: DESVENLAFAXINE SUCCINATE ER 50 MG TAB 100 MG PO (08:35)
[2023-01-25] MEDS: AZITHROMYCIN 250 MG TABLET PO (08:35)
--- NOTE | 2023-01-25 09:08 | PM.IMPN1 ---
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 Hernandez on 01/24, no evidence of SLE flare at this time Status: Acute (4) Hyponatremia: Problem details: - mild, likely related to increased free water intake in efforts to maintain her hydration, resolved 01/24 Status: Acute (5) Hypokalemia: Problem details: - mild, replace and follow Status: Acute (6) Murmur, cardiac: Problem details: - TTE 01/24, results below: - discussed outpatient f/u for KENNETH workup Final Impressions: 1. Normal LV size, normal wall thickness, normal global systolic function with an estimated EF of 60 - 65%. 2. Right ventricular cavity size is normal, global systolic RV function is normal. 3. No significant functional valve disease detected. 4. Borderline increased estimated pulmonary systolic pressures by tricuspid regurgitation velocity and right atrial pressure (~32 mmHg). 5. The inferior vena cava is dilated, respiratory size variation greater than 50%. Status: Acute (7) Elevated LFTs: Problem details: - asymptomatic, mildly enlarged liver on imaging - possibly related to R heart disease - outpatient f/u for this Status: Acute Plan - per above - SCDs for ppx - likely home tomorrow, would like to establish care with Dr. Delgado upon discharge Subjective Date Seen: 01/25/23 Interval history: Holly continues to have intermittent fevers (Tmax 100.7 last night), fever curve overall improving. No concerns for hospitalist this morning. Tolerating po intake without any abdominal pain or nausea. Exam Narrative: Exam Narrative: GEN: Alert and oriented, sitting comfortably in bedside chair HEENT: EOMIs bilaterally, no scleral icterus CV: RRR, soft systolic murmur without concerning features R: No wheezing, decreased bibasilar breath sounds, R>L Ext: wwp, trace edema bilateral ankles Skin: No concerning skin lesions or rashes on exposed skin Neuro: No focal deficits, no resting tremor Psych: Appropriate Const: Vital Signs, click to edit/add: Vital Signs - 24 hr 01/24/23 11:00 01/24/23 16:00 01/24/23 16:00 Temperature 97.8 F 98.0 F Pulse Rate [Pulse Oximeter] 95 81 Respiratory Rate 18 18 18 Blood Pressure [Ri ght Arm] 100/67 107/62 Pulse Oximetry 95 93 93 Oxygen Delivery Me thod Room Air Room Air Room Air 01/24/23 19:00 01/24/23 20:02 01/24/23 21:18 Temperature 100.7 F H 100.1 F H 100.1 F H Pulse Rate [Pulse Oximeter] 92 Respiratory Rate 18 Blood Pressure [Ri ght Arm] 107/62 Pulse Oximetry 94 Oxygen Delivery Nj thod Room Air 01/24/23 23:00 01/24/23 23:00 01/24/23 23:00 Temperature 99.1 F Pulse Rate [Pulse Oximeter] Respiratory Rate 18 18 18 Blood Pressure [Ri ght Arm] Pulse Oximetry Oxygen Delivery Nj thod Room Air 01/25/23 03:00 01/25/23 06:28 01/25/23 07:30 Temperature 98.9 F 100.1 F H Pulse Rate [Pulse Oximeter] 86 Respiratory Rate 18 Blood Pressure [Ri ght Arm] 102/67 Pulse Oximetry 94 90 Oxygen Delivery Nj thod Room Air Room Air 01/25/23 07:34 Temperature 98.4 F Pulse Rate [Pulse Oximeter] 83 Respiratory Rate 18 Blood Pressure [Ri ght Arm] 104/62 Pulse Oximetry 90 Oxygen Delivery Nj thod Room Air Labs Labs: Laboratory Results - last 24 hr 01/24/23 01/25/23 09:30 06:54 WBC 9.22 RBC 3.97 L Hgb 11.9 L Hct 35.9 MCV 90 MCH 30 MCHC 33 RDW Coeff of Sky 14.1 Plt Count 296 Neut % (Auto) 74.3 H Lymph % (Auto) 16.7 L [place] % (Auto) 7.4 Eos % (Auto) 0.3 Baso % (Auto) 0.4 Neut # (Auto) 6.90 Lymph # (Auto) 1.50 [place] # (Auto) 0.70 Eos # (Auto) 0.03 Baso # (Auto) 0.04 Abs Immat Gran (auto) 0.08 Imm/Tot Granulo (auto) 0.9 Sodium 135 Potassium 4.0 Chloride 97 Carbon Dioxide 32 BUN 9 Creatinine 0.7 Estimated Creat Clear 103.46 Estimated GFR 109 Glucose 113 Calcium 7.9 L Ionized Calcium Ramandeep 1.04 L Phosphorus 2.6 Magnesium 2.2 Total Bilirubin 0.6 GGT 186 H AST 99 H ALT 110 H Alkaline Phosphatase 255 H Lactate Dehydrogenase 323 H Total Protein 6.4 Albumin 3.3 Procalcitonin 0.93 H SARS-CoV-2 (PCR) Negative SARS-CoV-2 Influenza Type A (PCR) Negative PCR FLU A Influenza Type B (PCR) Negative PCR FLU B RSV (PCR) Negative PCR RSV
--- NOTE | 2023-01-25 14:47 | PC.NURSE ---
VSS on RA, no fever this shift, although temporal was reading about 1.0 degree off from oral. I gave calcium gluconate this morning for low Ca. She took a shower, up ad miquel in her room. The plan is for her to discharge tomorrow. Voiding fine. No reports of pain or discomfort this shift.
[2023-01-25] MEDS: cefTRIAXone 1 GM in 0.9 % SODIUM CHLORIDE Mini-bag 100 ML IVPB (22:39)
[2023-01-25] MEDS: SODIUM CHLORIDE 0.9 % (FLUSH) 10 ML SYRINGE 5 ML IVF (22:40)
--- NOTE | 2023-01-25 23:40 | PC.NURSE ---
Shift Note: Shift unremarkable, pt has been afebrile without Tylenol all shift. Independent.
[2023-01-26 03:00] VITALS: BP 113/69; PULSE 80; RESP 18; TEMP 36.9
[2023-01-26 04:46] VITALS: O2SAT 92
--- NOTE | 2023-01-26 06:19 | PC.NURSE ---
Pt A&O. VSS w/ sats >90% on room air. Afebrile throughout night. Up at miquel. Denies pain. Pt using IS.
[2023-01-26 06:39] LABS: Basophils Absolute Auto 0.04 K/uL (0.00-0.30); Basophils Percent Auto 0.5 % (0.0-3.0); Eosinophils Absolute Auto 0.28 K/uL (0.00-0.50); Eosinophils Percent Auto 3.2 % (0.0-7.0); Hematocrit 33.8 % (33.0-51.0); Hemoglobin* 11.3 gm/dL (12.0-16.0); Immature Granulocytes Abs Auto 0.09 K/uL (0.00-0.30); Lymphocytes Absolute Auto 2.02 K/uL (0.90-2.90); Lymphocytes Percent Auto 23.1 % (20-44); Mean Corpuscular HGB Conc 33 gm/dL (32-36); Mean Corpuscular Hemoglobin 30 pg (26-34); Mean Corpuscular Volume 91 fL (80-100); Monocytes Percent Auto 9.5 % (0.0-11.0); Neutrophils Percent Auto 62.7 % (42.0-72.0); Platelet Count* 365 K/uL (140-440); RDW Coefficient of Variation % 14.1 % (11.5-15.5); Red Blood Count 3.73 m/uL (4.00-5.20); White Blood Count* 8.76 K/uL (4.50-11.00)
[2023-01-26 06:40] LABS: Slide Review Reflex No
[2023-01-26 06:57] LABS: Albumin* 3.1 g/dL (3.3-5.0); Chloride* 98 mmol/L (96-114); Potassium* 3.6 mmol/L (3.6-5.1); Sodium* 137 mmol/L (135-149)
[2023-01-26 06:59] LABS: Creatinine* 0.7 mg/dL (0.5-1.5); Est. Creatinine Clearance* 103.46; Estimated Glomerular Filt Rate 109 ml/min
[2023-01-26 07:00] LABS: Alanine Aminotransferase* 141 U/L (4-35); Alkaline Phosphatase* 308 U/L (40-150); Aspartate Amino Transferase* 103 U/L (12-35); Bilirubin Total* 0.4 mg/dL (0.1-1.5); Blood Urea Nitrogen* 8 mg/dL (5-24); Carbon Dioxide* 33 mmol/L (20-32); Glucose* 100 mg/dL (60-115); Total Protein* 6.3 g/dL (6.0-8.3)
[2023-01-26 07:01] LABS: Calcium* 8.1 mg/dL (8.4-10.6)
[2023-01-26 07:45] VITALS: BP 110/70; PULSE 77; RESP 18; TEMP 36.9; O2SAT 91
--- NOTE | 2023-01-26 09:26 | PM.DS1 ---
DS: Providers Provider Date Seen: 01/26/23 Date of admission: 01/25/23 09:48 Primary care physician: Not a Local Provider Admitting Clinician: Fausto Head MD Consults: RT and Nutrition Attending Physician on discharge: Sabrina Kapoor MD Date of Discharge: 01/26/23 DS: Diagnosis Discharge Diagnosis (1) Atypical pneumonia: Status: Acute Problem details: - no significant improvement on Augmentin as an outpatient oral antibiotic prior to admission - treated with Ceftriaxone and Azithromycin (01/23) - + Legionella urine antigen (2) Multifocal pneumonia: Status: Acute Problem details: - on ED imaging, primary symptom is fever (3) Protein-losing nephropathy: Status: Acute Problem details: - history of lupus nephropathy, resolved 12 years ago, off of immunosuppressant therapy since 2009 - 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 Hernandez on 01/24, no evidence of SLE flare at this time (4) Hyponatremia: Status: Acute Problem details: - mild, likely related to increased free water intake in efforts to maintain her hydration, resolved 01/24 (5) Hypokalemia: Status: Acute Problem details: - mild, replaced. Normal upon discharge (6) Murmur, cardiac: Status: Acute Problem details: - TTE 01/24, results below: - discussed outpatient f/u for KENNETH workup Final Impressions: 1. Normal LV size, normal wall thickness, normal global systolic function with an estimated EF of 60 - 65%. 2. Right ventricular cavity size is normal, global systolic RV function is normal. 3. No significant functional valve disease detected. 4. Borderline increased estimated pulmonary systolic pressures by tricuspid regurgitation velocity and right atrial pressure (~32 mmHg). 5. The inferior vena cava is dilated, respiratory size variation greater than 50%. 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 On admission, imaging revealed bilateral multifocal pneumonia. Ceftriaxone and azithromycin were initiated; fevers continued but improved throughout stay. Last fever was during the evening of 01/24, and Holly never required supplemental oxygen during stay. Urine antigen resulted positive for Legionella. She will complete another 5 day course of Azithromycin as an outpatient. Notable comorbidities and findings above. No evidence of SLE flare, Dr. Hernandez (Collection Administrator) updated during stay. Patient was also noted to snore during stay; recommend that she discuss outpatient sleep study with PCP. She was medically appropriate for discharge on 01/26, will establish care with Dr. Delgado for hospital f/u. Status at Discharge Functional status at discharge: independent ambulation Overall status at discharge: patient is progressing back to baseline Time Spent with Patient Time attestation: Total time spent providing and/or coordinating discharge services: Time spent: Greater than 30 minutes Specific discharge activities: Medication reconciliation, care coordination Exam Narrative: Exam Narrative: GEN: Alert and oriented, nontoxic HEENT: EOMIs bilaterally, no scleral icterus R: Breathing comfortably without tachypnea Ext: wwp, no concerning edema Skin: No concerning skin lesions or rashes on exposed skin Neuro: Nonfocal Psych: Appropriate Const: Vital Signs, click to edit/add: Vital Signs - 24 hr 01/25/23 11:00 01/25/23 13:00 01/25/23 15:00 Temperature 98.4 F 98.5 F Pulse Rate [Pulse Oximeter] 83 71 Respiratory Rate 16 16 Blood Pressure [Ri ght Arm] 104/62 Pulse Oximetry 91 Oxygen Delivery Me thod Room Air 01/25/23 15:00 01/25/23 15:00 01/25/23 19:00 Temperature 98.5 F 98.4 F Pulse Rate [Pulse Oximeter] 71 84 Respiratory Rate 16 16 16 Blood Pressure [Ri ght Arm] 103/66 116/73 Pulse Oximetry 94 94 91 Oxygen Delivery Me thod Room Air Room Air Room Air 01/25/23 23:21 01/25/23 23:58 01/26/23 03:00 Temperature 98.5 F 98.4 F Pulse Rate [Pulse Oximeter] 75 80 Respiratory Rate 18 18 18 Blood Pressure [Ri ght Arm] 115/72 113/69 Pulse Oximetry 92 92 Oxygen Delivery Me thod Room Air Room Air 01/26/23 04:46 01/26/23 07:45 01/26/23 07:45 Temperature Pulse Rate [Pulse Oximeter] 77 Respiratory Rate 18 18 Blood Pressure [Ri ght Arm] Pulse Oximetry 92 91 Oxygen Delivery Me thod Room Air Room Air 01/26/23 07:45 Temperature 98.5 F Pulse Rate [Pulse Oximeter] 77 Respiratory Rate 18 Blood Pressure [Ri ght Arm] 110/70 Pulse Oximetry 91 Oxygen Delivery Me thod Room Air DS: Data Data Completed and Pending Labs on day of discharge: Labs from last 24 hours 01/26/23 01/23/23 06:15 23:20 WBC 8.76 RBC 3.73 L Hgb 11.3 L Hct 33.8 MCV 91 MCH 30 MCHC 33 RDW Coeff of Sky 14.1 Plt Count 365 Neut % (Auto) 62.7 Lymph % (Auto) 23.1 [place] % (Auto) 9.5 Eos % (Auto) 3.2 Baso % (Auto) 0.5 Neut # (Auto) 5.50 Lymph # (Auto) 2.02 [place] # (Auto) 0.80 Eos # (Auto) 0.28 Baso # (Auto) 0.04 Abs Immat Gran (auto) 0.09 Imm/Tot Granulo (auto) 1.0 Sodium 137 Potassium 3.6 Chloride 98 Carbon Dioxide 33 H BUN 8 Creatinine 0.7 Estimated Creat Clear 103.46 Estimated GFR 109 Glucose 100 Calcium 8.1 L Total Bilirubin 0.4 AST 103 H ALT 141 H Alkaline Phosphatase 308 H Total Protein 6.3 Albumin 3.1 L Ur L.pneumophila Ag Positive A Preliminary micro results at discharge 01/23/23 14:37 Blood Culture - Preliminary Blood NO GROWTH AFTER 48 HOURS 01/23/23 14:20 Blood Culture - Preliminary Blood NO GROWTH AFTER 48 HOURS Discharge Plan Discharge Disposition: Home, Self-Care Date of Admission: 01/25/23 09:48 Attending Provider on Discharge: Sabrina Kapoor Primary Care Provider: Provider,Not a Local Condition: Improved Anticipated Discharge Date/Time: 01/26/23 09:19 Discharge Medications: New azithromycin 250 mg tablet See Rx Instructions .ROUTE .COMPLEX Qty: 6 0RF Rx Instructions: For 250 mg dose pack: take 500 mg today (day 1), then 250 mg for 4 days (days 2-5) Continued desvenlafaxine succinate [Pristiq] 100 mg tablet extended release 24 hr 100 mg PO DAILY trazodone 100 mg tablet 100 mg PO HS PRN clonidine HCl 0.1 mg tablet 0.1 mg PO HS Patient Comments: TAKE 1 TABLET BY MOUTH AT BEDTIME Discontinued amoxicillin-pot clavulanate 875-125 mg tablet 1 tab PO BID Qty: 14 0RF Discharge Orders: Discharge Order (Routine); Ordered 01/26/23 Ordered By: Sabrina Kapoor Additional Instructions: See Dr. Delgado as scheduled to establish care, discuss sleep study referral. Routine f/u with Dr. Hernandez (I did call and leave him a message about the Legionella). Activity Level: Activity as Tolerated Activity Detail: Slowly Discharge Diet: Regular Follow Up Appointments: Tere Reagan PA-C [Physician Industrial Sales Engineer] - Provider,Not a Local [Primary Care Provider] - (Establish care/hospital f/u with Dr. Delgado at the [facility] [place] site within one week.) Forms: Gient Info Instructions
[2023-01-26] MEDS: DESVENLAFAXINE SUCCINATE ER 50 MG TAB 100 MG PO (09:28)
[2023-01-26] MEDS: AZITHROMYCIN 250 MG TABLET PO (09:28)
--- NOTE | 2023-01-26 11:34 | PC.NURSE ---
Discharge note: Pt alert and oriented, vitals stable, afebrile. Pt denies pain, denies nausea, tolerating oral intake, adequate fluids. Voiding without difficulty, states regular BMs since admission. Up ind in room, had shower this AM. IV removed for d/c, catheter intact. Cleared for d/c by provider, pt comfortable w/ dc'ing home. D/c instructions reviewed, questions answered. Pt given WC ride to front door for her friend/family to fruit picker to bring pt home.
== END 2023-01-26 10:55 | disposition home or self-care (01) | DRG 178 ==
LOC: ED 19:46 → MEDSURG 19:51
PROVIDERS: Family Medicine; Admitting Provider Internal Medicine; Emergency Provider Emergency Medicine; Visit Provider Internal Medicine
DX: A48.1 Legionnaires' disease (principal); E87.1 Hypo-osmolality and hyponatremia; J18.9 Pneumonia, unspecified organism; E66.9 Obesity, unspecified; F41.9 Anxiety disorder, unspecified; R06.82 Tachypnea, not elsewhere classified; R16.0 Hepatomegaly, not elsewhere classified; N25.89 Other disorders resulting from impaired renal tubular function; E87.6 Hypokalemia; R01.1 Cardiac murmur, unspecified; R94.5 Abnormal results of liver function studies; Z87.39 Personal history of other diseases of the musculoskeletal system and connective tissue
CPT/HCPCS: 36415; 71260; 74177; 76705; 80048; 80053; 80076; 82330; 82803; 82977; 83605; 83615; 83690; 83735; 84100; 84145; 84443; 84484; 85025; 85045; 86140; 87040; 87449; 87631; 93306; 99283; 99284; 99285; A9270; G0378; J0610; J0696; J2543; J7030; Q9967

== ENCOUNTER 2024-05-09 15:18 | Outpatient (CLI) | payer OTHER, SELFPAY | END 2024-05-09 15:19 | disposition home or self-care (01) | LOC: LKVREF 15:18 | PROVIDERS: PCP Family Medicine; Visit Provider Family Medicine | DX: R79.89 Other specified abnormal findings of blood chemistry (principal) | CPT/HCPCS: 80076 ==

== ENCOUNTER 2024-08-05 15:50 | Outpatient (CLI) | payer OTHER, SELFPAY ==
--- NOTE | 2024-08-13 12:33 | W.PM.SLEEP ---
Sleep Study Details Details Interpreting Provider: Dameon Date of Sleep Study: 08/05/24 Sleep Study Details: STUDY TYPE:? Home unattended ? BMI:? Not reported ORDERING PROVIDER:? Dameon INDICATION:? Concerned about sleep apnea ? SLEEP SUMMARY:? 398 minutes monitored RESPIRATORY SUMMARY:? AHI 14 Low oxygen 86 0.2% of study oxygen less than 90% Snoring 97.6% PERIODIC LIMB MOVEMENTS OF SLEEP:? Not recorded CARDIAC:? Range 52-83, mean 63.4 beats per minute IMPRESSION:? Mild obstructive sleep apnea RECOMMENDATION: Treatment options include weight loss, CPAP AutoSet, dental appliance and/or airway expansion surgery.
== END 2024-08-05 15:51 | disposition home or self-care (01) ==
LOC: SLEEP 15:51
PROVIDERS: PCP Family Medicine; Visit Provider Otolaryngology
DX: G47.33 Obstructive sleep apnea (adult) (pediatric) (principal)
CPT/HCPCS: 95806

== ENCOUNTER 2024-11-28 09:25 | Outpatient (CLI) | payer OTHER, SELFPAY | END 2024-11-28 09:26 | disposition home or self-care (01) | LOC: LKVREF 09:31 | PROVIDERS: PCP Family Medicine; Visit Provider Family Medicine | DX: Z01.818 Encounter for other preprocedural examination (principal); R79.89 Other specified abnormal findings of blood chemistry | CPT/HCPCS: 80048 ==

== ENCOUNTER 2024-12-06 11:17 | Day surgery (SDC) | payer OTHER, SELFPAY ==
[2024-12-06] VITALS (12 sets, daily range): BP systolic 113–133; BP diastolic 64–80; PULSE 58–73; RESP 12–18; TEMP 36.6–37; O2SAT 94–98; BMI 39.9
[2024-12-06] MEDS: LACTATED RINGERS 1000 ML 1,000 ML 100 ML IV (12:05)
[2024-12-06] MEDS: SODIUM CHLORIDE 0.9 % (FLUSH) 10 ML SYRINGE IVF (12:05)
--- NOTE | 2024-12-06 12:57 | W.PM.ENTPROC ---
Procedure Note Date of procedure: 12/06/24 Procedure: Preop diagnosis adenoid hypertrophy, recurrent acute otitis media Postoperative diagnosis same Procedure adenoidectomy Under general trach anesthesia patient was prepped and draped in usual fashion. The McIvor mouth gag was inserted the tongue retracted forward. A 12. Red rubber catheter was passed through the right nostril and pulled out through the mouth to retract the palate. The adenoid pad was easily visualized indirectly with a laryngeal mirror and was removed with suction cautery. There was no bleeding and there were no complications. The patient was extubated in the operating room taken recovery in satisfactory condition. Surgeon: Ke Xiao MD
--- NOTE | 2024-12-06 13:06 | P.ANES_ITS ---
Anesthesia Charges Start Date/Time Anesthesia Start Date: 12/06/24 Anesthesia Start Time: 12:38 Stop Date/Time Anesthesia Stop Date: 12/06/24 Anesthesia Stop Time: 13:08 Coding CPT Codes CPT Codes: ANESTH PROCEDURE ON MOUTH - 92544 ([id number]) P3 - PATIENT W/SEVERE SYS DISEASE, QK - FORESTRY ADVISER 2-4 CNCRNT ANES PROC, QX - DIVING FISHER SVC W/ MD MED DIRECTION
--- NOTE | 2024-12-06 13:06 | W.ANESCHARGE ---
Anesthesia Charges Start Date/Time Anesthesia Start Date: 12/06/24 Anesthesia Start Time: 12:38 Stop Date/Time Anesthesia Stop Date: 12/06/24 Anesthesia Stop Time: 13:08 Coding CPT Codes CPT Codes: ANESTH PROCEDURE ON MOUTH - 25874 ([id number]) P3 - PATIENT W/SEVERE SYS DISEASE, QK - COGENERATION OPERATOR 2-4 CNCRNT ANES PROC, QX - GAME AGENT SVC W/ MD MED DIRECTION
--- NOTE | 2024-12-06 13:14 | P.ANES_ITS ---
Anesthesia Charges Start Date/Time Anesthesia Start Date: 12/06/24 Anesthesia Start Time: 12:38 Stop Date/Time Anesthesia Stop Date: 12/06/24 Anesthesia Stop Time: 13:08 Coding CPT Codes CPT Codes: ANESTH PROCEDURE ON MOUTH - 69045 ([id number]) QK - WARP BLEACHING VAT TENDER 2-4 CNCRNT ANES PROC, QX - NEW VEHICLE SALES CONSULTANT SVC W/ MD MED DIRECTION, P3 - PATIENT W/SEVERE SYS DISEASE
--- NOTE | 2024-12-06 13:14 | W.ANESCHARGE ---
Anesthesia Charges Start Date/Time Anesthesia Start Date: 12/06/24 Anesthesia Start Time: 12:38 Stop Date/Time Anesthesia Stop Date: 12/06/24 Anesthesia Stop Time: 13:08 Coding CPT Codes CPT Codes: ANESTH PROCEDURE ON MOUTH - 69833 ([id number]) QK - COMMUNITY ACTION WORKER 2-4 CNCRNT ANES PROC, QX - SIX HORSE HITCH DRIVER SVC W/ MD MED DIRECTION, P3 - PATIENT W/SEVERE SYS DISEASE
--- NOTE | 2024-12-06 13:37 | SUR.PHASEI ---
patient met discharge criteria per anesthesia
[2024-12-06] MEDS: ACETAMINOPHEN 160 MG/5 ML CUP 320 MG PO (14:30)
== END 2024-12-06 14:50 | disposition home or self-care (01) ==
LOC: OR 11:20
PROVIDERS: PCP Family Medicine; Visit Provider Otolaryngology
PROC: (CPT 42831; principal; 2024-12-06 13:15)
DX: J35.2 Hypertrophy of adenoids (principal); H65.06 Acute serous otitis media, recurrent, bilateral
CPT/HCPCS: 42831; 00170; A9270; J0330; J2250; J2704; J3010; J7120